=== PATIENT | female | born 1975 | race Caucasian/White ===

== ENCOUNTER → 2022-03-04 10:35 | Outpatient (BNVA) | payer BC, SELFPAY | PROVIDERS: Family Provider Internal Medicine; PCP Internal Medicine; Visit Provider Nurse Practitioner | DX: R39.9 Unspecified symptoms and signs involving the genitourinary system (principal) | CPT/HCPCS: 81000 ==

== ENCOUNTER 2022-11-23 11:31 | Outpatient (CLI) | payer BC, MEDICAID, SELFPAY ==
--- NOTE | 2022-11-23 11:39 | MM_ITS ---
WS: [id number] BILATERAL 3D TOMOSYNTHESIS DIGITAL SCREENING MAMMOGRAPHY WITH CAD CLINICAL INFORMATION: SCREENING HISTORY: Screening mammogram. No current complaints. COMPARISON: 2017 TECHNIQUE: Bilateral CC and MLO views. FINDINGS: Scattered fibroglandular densities bilaterally. No suspicious focal mass, asymmetry, calcifications, or architectural distortion. No evidence of malignancy. IMPRESSION: MM/[place] [id number] BI-RADS: 1-Negative FOLLOW UP: 1 Year Follow-up Recommend return to annual screening mammography.
== END 2022-11-23 11:32 | disposition home or self-care (01) ==
PROVIDERS: PCP Family Medicine; Visit Provider Family Medicine
DX: Z12.31 Encounter for screening mammogram for malignant neoplasm of breast (principal)
CPT/HCPCS: 77063; 77067

== ENCOUNTER 2023-01-17 08:22 | Day surgery (SDC) | payer BC, MEDICAID, SELFPAY ==
--- NOTE | 2023-01-17 06:49 | W.PM.OPSFHP ---
Same Day Surgery H&P Indication for Procedure/HPI DATE OF PROCEDURE: January 17, 2023 CHIEF COMPLAINT/INDICATIONFOR SURGICAL PROCEDURE: need for screening colonoscopy PREOP DIAGNOSIS: need for screening colonoscopy PLANNED PROCEDURE: Operation Date: 01/17/23 09:35 [place] [address] colon, G0121 screen colon A risk z12.11(Not Applicable) - Zack Rudolph MD Medications/Allergies* Home Medications Medication Instructions Recorded Confirmed Type duloxetine 60 mg capsule,delayed 60 mg PO DAILY 03/04/22 01/15/23 History release (Cymbalta) benazepril 20 1 tab PO DAILY 11/19/22 01/15/23 History mg-hydrochlorothiazide 25 mg tablet Probiotic 1 tab PO DAILY 01/15/23 01/15/23 History multivitamin 1 tab PO DAILY 01/15/23 01/15/23 History omeprazole magnesium 20 mg 20 mg PO DAILY 01/15/23 01/15/23 History tablet,delayed release Allergies/Adverse Reactions Allergy/AdvReac Type Severity Reaction Status Date / Time clindamycin Allergy ADR-Vomitin Verified 01/15/23 10:57 g Pertinent Exam Findings alert, oriented x 3, clear to auscultation bilaterally and regular rate & rhythm Recommendations Surgery/Procedure today Coding Level of Care Code Acute Code for Chg Fwd
[2023-01-17 08:47] VITALS: BP 167/91; PULSE 79; RESP 20; TEMP 36.1; O2SAT 97
[2023-01-17] MEDS: sodium chloride 0.9% 1,000 ML 30 ML IV (08:57)
--- NOTE | 2023-01-17 09:05 | ANES.PREANE2 ---
Pre-Anesthetic Assessment Height/Weight: Height 1.68 m Temp Pulse Resp BP Pulse Ox O2 Del Method 97.0 F L 79 20 H 167/91 97 Room Air 01/17/23 08:47 01/17/23 08:47 01/17/23 08:47 01/17/23 08:47 01/17/23 08:47 01/17/23 08:47 Preop Diagnosis: need for screening colonoscopy Operation Date: 01/17/23 09:35 Proposed Procedures p 01189 colon, G0121 screen colon A risk z12.11(Not Applicable) - Zack Rudolph MD Familial anesthetic complications: None Was Beta Blanca taken within 24 hours: N/A Was Clonidine taken within 24 hours: N/A Last intake: Intake Last Liquid Date 01/16/23 Last Liquid Time 23:30 Last Solid Date 01/15/23 Last Solid Time 19:00 Social No alcohol and No tobacco Exam alert, oriented x 3, clear to auscultation bilaterally and regular rate & rhythm Airway Mallampati: Class III Dentition: chipped CV/HEM Hypertension GI Gastroesophageal Reflux Disease Anesthetic Plan ASA status: 2 Anesthesia: MAC Risk of > 500 ml blood loss (7ml/kg in children): No Medications/Allergies Home Medications Medication Instructions Recorded Confirmed Last Taken Type duloxetine 60 mg capsule,delayed 60 mg PO DAILY 03/04/22 01/17/23 01/16/23 History release (Cymbalta) benazepril 20 1 tab PO DAILY 11/19/22 01/17/23 01/16/23 History mg-hydrochlorothiazide 25 mg tablet Probiotic 1 tab PO DAILY 01/15/23 01/17/23 01/16/23 History multivitamin 1 tab PO DAILY 01/15/23 01/17/23 01/16/23 History omeprazole magnesium 20 mg 20 mg PO DAILY 01/15/23 01/17/23 01/16/23 History tablet,delayed release Allergies Allergy/AdvReac Type Severity Reaction Status Date / Time clindamycin Allergy ADR-Vomitin Verified 01/15/23 10:57 g Current Medications Generic Name Dose Route Start Last Admin Trade Name Freq PRN Reason Stop Dose Admin Sodium Chloride 1,000 mls @ 30 mls/hr 01/17/23 08:30 01/17/23 08:57 Sodium Chloride 0.9% IV 30 mls/hr .Q24H KEN Administration Data Anesthesia Cardiac Studies: No Data to Display
[2023-01-17 10:04] VITALS: BP 110/65; PULSE 72; RESP 18; TEMP 36.1; O2SAT 92
[2023-01-17 10:15] VITALS: BP 120/66; PULSE 72; RESP 16; O2SAT 97
--- NOTE | 2023-01-17 10:45 | ANE.PACU2 ---
Inpatient post-anesthesia follow up: Airway intact: Yes Vital signs: Temperature 97.0 F Pulse Rate 72 Respiratory Rate 16 Blood Pressure 120/66 Pulse Oximetry 97 Oxygen Delivery Me thod Room Air Oxygen Flow Rate Fraction of Inspir ed Oxygen Hydration adequate: Yes Nausea and vomiting: No Pain level: 1 Mental status: Baseline
== END 2023-01-17 10:44 | disposition home or self-care (01) ==
PROVIDERS: PCP Family Medicine; Visit Provider Surgery
PROC: 0DJD8ZZ Inspection of Lower Intestinal Tract, Via Natural or Artificial Opening Endoscopic (ICD-10-PCS; CPT 45378; principal; 2023-01-17 09:35)
DX: Z12.11 Encounter for screening for malignant neoplasm of colon (principal); D12.4 Benign neoplasm of descending colon; D12.8 Benign neoplasm of rectum; I10 Essential (primary) hypertension; K21.9 Gastro-esophageal reflux disease without esophagitis
CPT/HCPCS: 45380; 88305; J2704; J7030

== ENCOUNTER 2023-11-13 18:53 | Emergency (ER) | payer BC, MEDICAID, SELFPAY ==
--- NOTE | 2023-11-13 18:58 | XRR_ITS ---
PROCEDURE INFORMATION: Exam: XR Right Ankle Exam date and time: 11/13/2023 7:08 PM Age: 48 years old Clinical indication: Injury or trauma; Fall; Blunt trauma; Ankle and foot; Right TECHNIQUE: Imaging protocol: Radiologic exam of the right ankle. Views: 3 or more views. COMPARISON: CR XR foot RT min 3V* [id number] 11/13/2023 7:08 PM FINDINGS: Bones/joints: Osseous structures are intact. Negative for fracture. Soft tissues: Soft tissue swelling around the ankle. XR/XR ankle RT min 3V* [id number] IMPRESSION: No acute osseous abnormalities.
--- NOTE | 2023-11-13 18:58 | XRR_ITS ---
PROCEDURE INFORMATION: Exam: XR Right Foot Exam date and time: 11/13/2023 7:08 PM Age: 48 years old Clinical indication: Injury or trauma; Fall; Blunt trauma; Ankle and foot; Right TECHNIQUE: Imaging protocol: Radiologic exam of the right foot. Views: 3 or more views. COMPARISON: CR (LOW EXM, ) 11/13/2023 7:08 PM FINDINGS: Bones/joints: Osseous structures are intact. Negative for fracture. Soft tissues: Normal. XR/XR foot RT min 3V* [id number] IMPRESSION: No acute findings.
[2023-11-13 18:59] VITALS: BP 150/57; PULSE 89; RESP 16; TEMP 37; O2SAT 99; BMI 56.5
--- NOTE | 2023-11-13 19:23 | ED_ITS ---
HPI - Extremity Problem General: Chief complaint: Extremity Injury, Lower Stated complaint: fall right ankle injury Time Seen by Provider: 11/13/23 19:15 Source: patient Mode of arrival: ambulatory Limitations: no limitations History of Present Illness: 40-year-old female states she had slippe d at home and twisted her right ankle. She states that this happened roughly 2 hours ago she been having pain and swelling to the right lateral ankle. States been able to bear weight but is painful. Denies any other injuries denies hitting her head Associated symptoms: Deny chest pain, fever(s) or rash Related Data Home Medications Medication Instructions Recorded Confirmed duloxetine 60 mg capsule,delayed 60 mg PO DAILY 03/04/22 01/25/23 release (Cymbalta) benazepril 20 1 tab PO DAILY 11/19/22 01/25/23 mg-hydrochlorothiazide 25 mg tablet Probiotic 1 tab PO DAILY 01/15/23 01/25/23 multivitamin 1 tab PO DAILY 01/15/23 01/25/23 omeprazole magnesium 20 mg 20 mg PO DAILY 01/15/23 01/25/23 tablet,delayed release Previous Rx's Medication Instructions Recorded naproxen 500 mg tablet (Naprosyn) 500 mg PO BID PRN pain #20 tabs 11/13/23 Allergies Allergy/AdvReac Type Severity Reaction Status Date / Time clindamycin Allergy ADR-Vomitin Verified 01/25/23 10:46 g Review of Systems Const: Denies: fever(s), chills, body aches or change in appetite ENMT: Denies: throat pain or dental pain Card: Denies: chest pain GI: Denies: abdominal pain, nausea, vomiting or diarrhea Musc: Reports: extremity pain; Denies: neck pain or back pain Skin/Breast: Denies: rash Neuro: Denies: headache(s) Physical Exam Const: COMMON NORMALS: no acute distress, patient oriented x3 and healthy appearing HENMT: COMMON NORMALS: normocephalic and atraumatic HEAD & SCALP: normocephalic and atraumatic Neck/C-Spine: COMMON NORMALS: full ROM and supple Chest: COMMONS NORMALS: normal inspection of the chest Resp: COMMON NORMALS: normal respiratory effort Cardio: COMMON NORMALS: regular rate RATE: regular rate Extremity: NARRATIVE EXTREMITY EXAM: Tenderness along swelling to right lateral ankle no obvious deformity distal pulses intact Neuro: COMMON NORMALS: patient oriented x3, moves all extremities and no focal motor deficits Psych: COMMON NORMALS: mental status grossly normal, Normal thought process present and cooperative THOUGHT PROCESS: Normal thought process present Skin: COMMON NORMALS: no rashes or lesions noted and no wounds GENERAL SKIN EXAM: no rashes or lesions noted Course Vital Signs: Vital signs: Vital Signs Temperature 98.6 F 11/13/23 18:59 Pulse Rate 89 11/13/23 18:59 Respiratory Rate 16 11/13/23 18:59 Blood Pressure 150/57 11/13/23 18:59 Pulse Oximetry 99 11/13/23 18:59 Oxygen Delivery Me thod Room Air 11/13/23 18:59 MDM - Extremity (Nontraumatic) Medical Decision Making Patient presents for likely ankle sprain not see any fractures will Camilo wrap she is to weight-bear as tolerated we will give her crutches we will place her on Naprosyn we will get her follow-up with podiatry Medical Records I reviewed the patient's medical records. XR interpretation done by ED provider, pending radiology final review ED provider radiology interpretation(s): X-ray right foot and ankle: No acute fracture noted Discharge Plan Discharge Patient Disposition: Home Clinical Impression: Ankle sprain and strain Condition: Stable Prescriptions: New Naprosyn 500 mg tablet 500 mg PO BID PRN (Reason: pain) Qty: 20 0RF No Action duloxetine [Cymbalta] 60 mg capsule,delayed release(DR/EC) 60 mg PO DAILY benazepril-hydrochlorothiazide 20-25 mg tablet 1 tab PO DAILY multivitamin Tablet 1 tab PO DAILY omeprazole magnesium 20 mg Tablet,Delayed Release (Dr/Ec) 20 mg PO DAILY Probiotic 1 tab PO DAILY Discharge Orders: Discharge ED (Routine); Ordered 11/13/23 Ordered By: Ashley Gutierrez Referrals: Ja Bolton MD [Primary Care Provider] - Discharge Diet: Advance as tolerated Discharge Activity: Resume usual activity Patient Instructions: Ankle Sprain (ED) Coding Level of Care Code ED Install And Repair Technician for Emerita Jones
[2023-11-13 19:43] VITALS: BP 160/71; PULSE 85; O2SAT 98
--- NOTE | 2023-11-15 10:04 | PC.SOCIAL ---
Podiatry Referral Message sent to clinic for f/u appt at this time.
== END 2023-11-13 19:40 | disposition home or self-care (01) ==
PROVIDERS: Emergency Provider Emergency Medicine; PCP Family Medicine
DX: S93.402A Sprain of unspecified ligament of left ankle, initial encounter (principal); W01.0XXA Fall on same level from slipping, tripping and stumbling without subsequent striking against object, initial encounter; Y92.009 Unspecified place in unspecified non-institutional (private) residence as the place of occurrence of the external cause
CPT/HCPCS: 73610; 73630; 99283

== ENCOUNTER 2023-12-12 14:09 | Outpatient (CLI) | payer BC, SELFPAY ==
--- NOTE | 2023-12-12 14:18 | MM_ITS ---
WS: [id number] VIEWS: MLO and CC views both breasts. 3D digital tomosynthesis is also included in this exam. Comparison made with prior exam of 02/26/2012, 09/27/2016, 11/23/2022.. Findings: There are scattered areas of fibroglandular density. No suspicious mass, tumor calcification or architectural distortion. MM/MM scr BI tomosynthesis [id number] Impression: BI-RADS: 2 - Benign. FOLLOW-UP: 1 Year Follow-up This mammogram was also analyzed by the Computer Aided Detection System [employer].
== END 2023-12-12 14:10 | disposition home or self-care (01) ==
PROVIDERS: PCP Family Medicine; Visit Provider Family Medicine
DX: Z12.31 Encounter for screening mammogram for malignant neoplasm of breast (principal); R92.323 Mammographic fibroglandular density, bilateral breasts
CPT/HCPCS: 77063; 77067